=== PATIENT | female | born 1955 | race Caucasian/White ===

== ENCOUNTER → 2016-09-24 | Outpatient (CLI) | payer BC, MEDICARE | END | disposition home or self-care (01) | LOC: PCVCCLINIC 10:50 | PROVIDERS: ATTEND Internal Medicine Cardiovascular Disease | DX: I25.10 Atherosclerotic heart disease of native coronary artery without angina pectoris (principal); R00.1 Bradycardia, unspecified; I10 Essential (primary) hypertension; E78.00 Pure hypercholesterolemia, unspecified; I87.2 Venous insufficiency (chronic) (peripheral); Z90.710 Acquired absence of both cervix and uterus; Z96.651 Presence of right artificial knee joint; Z79.82 Long term (current) use of aspirin; Z79.899 Other long term (current) drug therapy; Z88.1 Allergy status to other antibiotic agents | CPT/HCPCS: 80061; 93005; G0463 ==

== ENCOUNTER → 2016-10-12 | Outpatient (CLI) | payer MEDICARE ==
[~2016-10-12] MED LIST: REGADENOSON 0.4 MG/5 ML DISP.SYRIN. IV ONE
--- NOTE | 2016-10-12 19:27 | PCVCIMAG ---
APPROVED REPORT Exam: Nuclear Stress Test Indication: CAD , Dyspnea Patient Location: Out-Patient Stress Nurse: Aileen uDnn RN, Latrice Claudio RN [place] Tech:Maryuri Kavon [facility] Ht: 5 ft 0 in Wt: 155 lbs BSA: 1.67 m2 HR: 47 bpm BP: 104/59 mmHg BMI: 30.2 Rhythm: Sinus Bradycardia Medical History Medical History: HTN, Hyperlipidemia Medications: Amlodipine, ASA, Atorvastatin, Benezepril, Protonix Allergies: Bactrim, Sulfa, Tizanidine Cardiac Risk Factors: Age Pretest Chest Pain Characteristics: No chest pain Exercise History: Sedentary Physical Disabilities: Back NM EXAM: Myocardial Perfusion REST/STRESS Imaging Protocol: Rest Tc-99m/Stress Tc-99m 1 day Resting Data Rest SPECT myocardial perfusion imaging was performed in supine position 45 minutes following the intravenous injection of 10.4 mCi of Tc-99m Sestamibi. Time of rest injection: 0815 Date: 10/12/2016 Pharmacologic Stress Pharmacologic stress test was performed by injecting Regadenoson 0.4 mg IV push followed by the intravenous injection of 32.8 mCi of Tc-99m Sestamibi. Time of stress injection: 1000 Date: 10/12/2016 Administration Route: IV Administration Site: Right Arm Gated Stress SPECT was performed 45 minutes after stress injection. The images were gated to evaluate regional wall motion and calculate left ventricular ejection fraction. Study Data Post stress, the left ventricular ejection was 81%.. SSS: 9 SRS: 1 SDS: 8 TID = 0.95. Perfusion This area thickens and moves normally. There is a medium area of moderately reduced uptake in the mid and apical segment of the anteroseptal wall which is seen on the stress images and normalizes on the resting images. Wall Motion Normal left ventricular wall motion. Nuclear Conclusion 1. SCINTIGRAPHIC EVIDENCE OF A REVERSIBLE ANTERSEPTAL WALL DEFECT WITHOUT WALL MOTION ABNORMALITIES. CLINICAL CORRELATION SUGGESTED Interpreted by: Rina Fu MD Electronically Approved: 10/12/2016 15:32:39 Stress Test Details Stress Test: Pharmacologic stress testing performed using 0.4 mg of regadenoson per 5 mL given IV over 10 seconds. Reason for pharmacologic stress test: physical limitation. HR Resting HR: 47 bpmMax Heart Rate (APMHR): 160 bpm Max HR Achieved: 94 bpmTarget HR (85% APMHR): 136 bpm % of APMHR: 58 Recovery HR: 75 bpm BP Resting BP: 104/59 mmHg Max BP: 124/69 mmHg Recovery BP: 115/62 mmHg ECG Resting ECG: Sinus Bradycardia Stress ECG: Sinus Rhythm Recovery ECG: Sinus Rhythm, nonspecific ST-T abnormalities Recovery ST Change: None Clinical Reason for Termination: Completed protocol Stress Symptoms: Dyspnea, Heavy Arms Exercise duration: 0 min 55 sec Symptoms resolved during recovery. Stress ECG Conclusion ECG: Non-ischemic <Conclusion> ECG: Non-ischemic
== END | disposition home or self-care (01) ==
LOC: PCVCIMAG 07:43
PROVIDERS: ATTEND Internal Medicine Cardiovascular Disease
DX: I25.10 Atherosclerotic heart disease of native coronary artery without angina pectoris (principal); R00.1 Bradycardia, unspecified; I10 Essential (primary) hypertension; E78.5 Hyperlipidemia, unspecified; E78.00 Pure hypercholesterolemia, unspecified
CPT/HCPCS: 78452; 93017; A9500; J2785

== ENCOUNTER → 2017-12-21 | Outpatient (CLI) | payer MEDICARE | END | disposition home or self-care (01) | LOC: PCVCCLINIC 12:10 | PROVIDERS: ATTEND Internal Medicine Cardiovascular Disease | DX: I25.10 Atherosclerotic heart disease of native coronary artery without angina pectoris (principal); I10 Essential (primary) hypertension; E78.00 Pure hypercholesterolemia, unspecified; I87.2 Venous insufficiency (chronic) (peripheral); G47.33 Obstructive sleep apnea (adult) (pediatric); K21.9 Gastro-esophageal reflux disease without esophagitis; Z99.89 Dependence on other enabling machines and devices; Z88.8 Allergy status to other drugs, medicaments and biological substances; Z79.899 Other long term (current) drug therapy; Z79.82 Long term (current) use of aspirin | CPT/HCPCS: 80061; 93005; G0463 ==

== ENCOUNTER → 2018-09-22 | Outpatient (CLI) | payer MEDICARE | END | disposition home or self-care (01) | LOC: PCVCCLINIC 12:00 | PROVIDERS: ATTEND Internal Medicine Cardiovascular Disease | DX: I25.10 Atherosclerotic heart disease of native coronary artery without angina pectoris (principal); I10 Essential (primary) hypertension; E78.00 Pure hypercholesterolemia, unspecified; M25.551 Pain in right hip; Z79.82 Long term (current) use of aspirin; Z88.8 Allergy status to other drugs, medicaments and biological substances | CPT/HCPCS: 36415; 80061; 93005; G0463 ==

== ENCOUNTER → 2018-12-15 | Outpatient (CLI) | payer MEDICARE ==
--- NOTE | 2018-12-15 16:59 | PCVCIMAG ---
APPROVED REPORT Imaging Protocol: Rest Tc-99m/Stress Tc-99m 1 day Study performed: 12/15/2018 11:15:26 Indication: CAD Patient Location: Out-Patient Stress Nurse: Roselia Cast RN, Aileen Dunn RN [place] Tech:Alek MARLIN Fagan Ht: 5 ft 0 in Wt: 168 lbs BSA: 1.73 m2 HR: 43 bpm BP: 144/82 mmHg BMI: 32.8 Rhythm: Marked Sinus Bradycardia Medical History Medical History: Age, Hyperlipidemia, HTN, CAD Medications: Albuterol, Amlodipine, ASA, Lipitor Allergies: None limiting test Previous Cardiac Procedures: Cath 2017 - moderate disease, medical treatment Pretest Chest Pain Characteristics: No chest pain Exercise History: Sedentary Resting Data Rest SPECT myocardial perfusion imaging was performed in supine position 45 minutes following the intravenous injection of 10.2 mCi of Tc-99m Sestamibi. Time of rest injection: 1015 Date: 12/15/2018 Administration Route: IV Administration Site: Left AC Pharmacologic Stress Pharmacologic stress test was performed by injecting Regadenoson 0.4 mg IV push over 10-15 seconds immediately followed by the intravenous injection of 32.0 mCi of Tc-99m Sestamibi. Time of stress injection: 1155 Date: 12/15/2018 Administration Route: IV Administration Site: Left AC Gated Stress SPECT was performed 45 minutes after stress injection. The images were gated to evaluate regional wall motion and calculate left ventricular ejection fraction. Stress Test Details Stress Test: Pharmacologic stress testing performed using 0.4 mg of regadenoson per 5 mL given IV over 10 seconds. Reason for pharmacologic stress test: patient uses a cane. HRMax Heart Rate (APMHR): 157 bpm Resting HR: 43 bpmTarget HR (85% APMHR): 133 bpm Max HR Achieved: 91 bpm % of APMHR: 57 Recovery HR: 67 bpm BP Resting BP: 144/82 mmHg Max BP: 150/84 mmHg Recovery BP: 157/74 mmHg ECG Resting ECG: Marked Sinus Bradycardia Stress ECG: Sinus Rhythm Arrhythmia: VPC's Recovery ECG: Sinus Rhythm Clinical Reason for Termination: Completed protocol Stress Symptoms: Dyspnea Exercise duration: min 55 sec Symptoms resolved with caffeine. Stress ECG Conclusion ECG: Non-ischemic Study Quality Study: Good Study Data Post stress, the left ventricular ejection was 72%.. SSS: 0 SRS: 12 SDS: 0 TID = 0.76. Perfusion No evidence of stress induced ischemia or prior myocardial infarction. Wall Motion Normal left ventricular size and function with no regional wall motion abnormalities. Nuclear Conclusion No evidence of stress induced ischemia or prior myocardial infarction. Normal left ventricular size and function with no regional wall motion abnormalities. Post stress, the left ventricular ejection was 72%. Compared to the prior study dated 2016, anterior ischemia has resolved.. Interpreted by: Booker Huerta MD Electronically Approved: 12/15/2018 15:28:06 <Conclusion> ECG: Non-ischemic
== END | disposition home or self-care (01) ==
LOC: PCVCIMAG 09:31
PROVIDERS: ATTEND Internal Medicine Cardiovascular Disease
DX: I25.10 Atherosclerotic heart disease of native coronary artery without angina pectoris (principal); I10 Essential (primary) hypertension; E78.5 Hyperlipidemia, unspecified; Z88.8 Allergy status to other drugs, medicaments and biological substances
CPT/HCPCS: 78452; 93017; A9500; J2785